=== PATIENT | female | born 1950 | race Caucasian/White ===

== ENCOUNTER 2019-04-27 19:26 | Inpatient (IN) | payer MEDICARE, OTHER ==
[~2019-04-27] VITALS: Ht 157.5 cm; Wt 85.0 kg
[2019-04-27] MEDS ORDERED: SODIUM CHLORIDE FLUSH 10ML SYR IVF ONE (20:00)
--- NOTE | 2019-04-27 20:37 | NUR ---
pt to room from lobby
[2019-04-27 20:38] LABS: BASOPHILS # (AUTO) 0.04 x10^3/uL (0-0.1); BASOPHILS % (AUTO) 1 % (0-1); EOSINOPHILS # (AUTO) 0.18 x10^3/uL (0-0.4); EOSINOPHILS % (AUTO) 2 % (1-7); LYMPHOCYTES # (AUTO) 2.55 x10^3/uL (1-3.4); LYMPHOCYTES % (AUTO) 29 % (22-44); MD NO; MEAN CORPUSCULAR HEMOGLOBIN 32.2 pg (27.0-34.8); MEAN CORPUSCULAR VOLUME 97.5 fL (80-100); MEAN PLATELET VOLUME 7.5 fL (7.4-10.4); MONOCYTES # (AUTO) 0.92 x10^3/uL (0.2-0.8); MONOCYTES % (AUTO) 10 % (2-9); NEUTROPHILS # (AUTO) 5.24 x10^3/uL (1.8-6.8); NEUTROPHILS % (AUTO) 59 % (42-75); PLATELET COUNT 340 x10^3/uL (130-400); RED BLOOD COUNT 4.16 x10^6/uL (3.82-5.3); RED CELL DISTRIBUTION WIDTH 13.7 % (9.6-15.2)
[2019-04-27 20:42] LABS: ALBUMIN 3.4 g/dL (3.4-5.0); ANION GAP 6 mmol/L (5-15); CALCIUM 8.6 mg/dL (8.5-10.1); CHLORIDE 111 mmol/L (98-107)
[2019-04-27 20:48] LABS: ALANINE AMINOTRANSFERASE 24 U/L (12-78); ALKALINE PHOSPHATASE 122 U/L (45-117); BILIRUBIN,TOTAL 0.4 mg/dL (0.2-1.0); CREATININE 0.81 mg/dL (0.55-1.02); TOTAL PROTEIN 7.2 g/dL (6.4-8.2); TROPONIN I < 0.015 ng/mL (0.000-0.045)
--- NOTE | 2019-04-27 21:43 | NUR ---
Patient presents to ER with son who states she had an episode of dizziness and confusion. Patient states they were eating dinner and she suddenly became dizzy. The son states, in that time, patient also became confused and was slow to respond with slurred speech. Her eyes rolled back in her head. The episode lasted approx 30 minutes. They state she took her BP meds today with no food and thought that may have been the problem. Patient is in NAD and does not have complaints at this time. Resp even and unlabored.
--- NOTE | 2019-04-27 23:12 | NUR ---
MRI checklist complete.
--- NOTE | 2019-04-27 23:22 | NUR ---
Patient to MRI.
--- NOTE | 2019-04-28 00:06 | NUR ---
Patient back from MRI. Resting in [facility] with no complaints.
[2019-04-28] MEDS ORDERED: ASPIRIN 325 MG TABLET PO STA (00:32)
[2019-04-28] MEDS ORDERED: ASPIRIN 325 MG TABLET ONE (00:55)
[2019-04-28] MEDS ORDERED: OMNIPAQUE 350 MG/ML, 100ML BOTTLE ONE (00:58)
[2019-04-28] MEDS: ATORVASTATIN 80 MG TABLET PO SCH ×2 (01:00→20:04)
--- NOTE | 2019-04-28 01:12 | NUR ---
Spoke with neurologist regarding patient medications ordered. Advised to hold Lipitor and ASA if patient took them within 12 hours. Patient states she has taken both within 12 hours. Both meds held. Dr. Davis in room.
--- NOTE | 2019-04-28 01:14 | NUR ---
Patient report given to Gina. Patient to be transferred to room 490-1.
--- NOTE | 2019-04-28 01:29 | NUR ---
Attempted med rec, however patient does not have her list with her and does not remember the names.
[2019-04-28 02:20] VITALS: BP 134/75
[2019-04-28] MEDS ORDERED: ONDANSETRON 2MG/ML, 2ML IVPush PRN (03:00)
[2019-04-28] MEDS ORDERED: ACETAMINOPHEN 650 MG/20.3 ML UDC PO PRN (03:00)
[2019-04-28] MEDS ORDERED: LABETALOL 5MG/ML, 20ML IV PRN (03:00)
[2019-04-28] MEDS ORDERED: PROMETHAZINE 25 MG/ML, 1ML IM PRN (03:00)
[2019-04-28] MEDS ORDERED: LACTATED RINGERS 1,000 ML IV SCH (03:00)
[2019-04-28 06:33] LABS: CHOL/HDL RATIO 2.8; LDL/HDL RATIO 1.2 (0.5-3.0)
[2019-04-28 06:36] VITALS: BP 100/62
[2019-04-28] MEDS: ASPIRIN 81 MG TABLET CHEW PO/NG SCH (10:08)
[2019-04-28 12:29] VITALS: BP 128/74
[2019-04-28 20:12] VITALS: BP 124/72
[2019-04-28] MEDS ORDERED: ATORVASTATIN 80 MG TABLET PO SCH (21:00)
[2019-04-29 00:18] VITALS: BP 114/70
[2019-04-29 07:10] VITALS: BP 113/68
[2019-04-29] MEDS: ASPIRIN 81 MG TABLET CHEW PO/NG SCH (11:19)
[2019-04-29 12:30] VITALS: BP 111/71
[2019-04-29] MEDS ORDERED: SPIR25TA5 PO (13:28)
[2019-04-29] MEDS ORDERED: ATOR40TA78 PO (13:28)
[2019-04-29] MEDS ORDERED: PANT40TA5 PO (13:28)
[2019-04-29] MEDS ORDERED: AMLO-150 PO (13:28)
[2019-04-29] MEDS ORDERED: SERT100T32 PO (13:28)
[2019-04-29 19:53] VITALS: BP 104/76
[2019-04-29] MEDS: AMLODIPINE 5 MG TABLET PO SCH (20:09)
[2019-04-29] MEDS: ATORVASTATIN 80 MG TABLET PO SCH (20:09)
[2019-04-30 01:44] VITALS: BP 107/69
[2019-04-30 07:20] VITALS: BP 112/69
[2019-04-30] MEDS: ASPIRIN 81 MG TABLET CHEW PO/NG SCH (08:43)
[2019-04-30] MEDS ORDERED: REGADENOSON 0.4 MG/5 ML SYRINGE ONE (08:47)
[2019-04-30] MEDS ORDERED: SERTRALINE 100MG TABLET PO SCH (09:00)
[2019-04-30] MEDS ORDERED: PANTOPROZOLE 40MG TABLET PO SCH (09:00)
[2019-04-30] MEDS ORDERED: SPIRONOLACTONE 25 MG TABLET PO SCH (09:00)
[2019-04-30] MEDS ORDERED: PROP20TA PO ×2 (10:25→16:13)
[2019-04-30 10:49] LABS: TROPONIN I < 0.015 ng/mL (0.000-0.045)
[2019-04-30] MEDS: AMLODIPINE 5 MG TABLET PO SCH (12:40)
[2019-04-30 13:12] VITALS: BP 124/70
[2019-04-30] MEDS ORDERED: ASPI-515 PO/NG (16:13)
[2019-05-01] MEDS ORDERED: PROPRANOLOL 20 MG TABLET PO SCH (06:00)
== END 2019-04-30 17:46 | disposition home or self-care (01) | DRG 101 ==
LOC: ED 21:21 → EDIP 04-28 00:26 → 4EST 04-28 02:16 → 4WST 04-29 22:40
PROVIDERS: ADMIT Family Medicine; ATTEND Internal Medicine
DX: R56.9 Unspecified convulsions (principal); I47.2 Ventricular tachycardia; G93.40 Encephalopathy, unspecified; Z86.73 Personal history of transient ischemic attack (TIA), and cerebral infarction without residual deficits; I25.10 Atherosclerotic heart disease of native coronary artery without angina pectoris; I66.09 Occlusion and stenosis of unspecified middle cerebral artery; M54.12 Radiculopathy, cervical region; I25.2 Old myocardial infarction; E66.9 Obesity, unspecified; Z68.34 Body mass index [BMI] 34.0-34.9, adult; E78.00 Pure hypercholesterolemia, unspecified; E78.5 Hyperlipidemia, unspecified; I10 Essential (primary) hypertension; W01.0XXA Fall on same level from slipping, tripping and stumbling without subsequent striking against object, initial encounter; Y93.01 Activity, walking, marching and hiking; Y92.89 Other specified places as the place of occurrence of the external cause; Y99.8 Other external cause status; Z80.1 Family history of malignant neoplasm of trachea, bronchus and lung; Z82.49 Family history of ischemic heart disease and other diseases of the circulatory system; Z90.49 Acquired absence of other specified parts of digestive tract; Z95.5 Presence of coronary angioplasty implant and graft
CPT/HCPCS: 36415; 70496; 70498; 70551; 71046; 78452; 80053; 80061; 83735; 83880; 84100; 84443; 84484; 85025; 93005; 93017; 93306; 95819; 99285; G0378; J2785; Q9967; A9502; C9898; J7120